=== PATIENT | female | born 1975 | race Caucasian/White ===

== ENCOUNTER 2021-01-22 08:38 | Inpatient (IN) | payer OTHER, SELFPAY ==
[~2021-01-22] VITALS: Ht 170.2 cm; Wt 104.3 kg
[2021-01-22 08:38] VITALS: BP_SYST 165
[2021-01-22] MEDS ORDERED: MORPHINE 4 MG INJ. 4 MG/ML VIAL IVP ONE ×2 (09:00→13:00)
[2021-01-22] MEDS ORDERED: ONDANSETRON HCL 4 MG/2 ML VIAL IVP ONE ×2 (09:00→20:15)
[2021-01-22] MEDS ORDERED: KETOROLAC TROMETHAMINE 30 MG VIAL IVP ONE (09:00)
[2021-01-22] MEDS ORDERED: MAG HYDROX/AL HYDROX/SIMETH 30 ML, DICYCLOMINE HCL 20 MG, LIDOCAINE VISCOUS 2% 15ML (PO... PO ONE ×3 (09:00)
[2021-01-22] MEDS ORDERED: NACL 0.9% 1,000 ML IV ONE (09:00)
[2021-01-22 09:52] LABS: MEAN CORPUSCULAR HEMOGLOBIN 32 pg (27-31)
[2021-01-22 09:54] LABS: CALCIUM 8.6 mg/dL (8.4-11.0); CREATININE 1.17 mg/dL (0.55-1.30); POTASSIUM 4.4 mmol/L (3.5-5.1)
[2021-01-22 09:56] LABS: BASOPHILS % (AUTO) 0.3 % (0.0-2.0); EOSINOPHILS # (AUTO) 0.1 K/uL (0.0-0.4); EOSINOPHILS % (AUTO) 1.1 % (0.0-4.0); HEMATOCRIT 40.8 % (36-48); HEMOGLOBIN 13.6 g/dL (12.0-16.0); LYMPHOCYTES # (AUTO) 0.7 K/uL (1.0-5.5); LYMPHOCYTES % (AUTO) 13.9 % (20.5-51.5); MEAN CORPUSCULAR HGB CONC 33 % (32-36); MEAN CORPUSCULAR VOLUME 95 fL (79.0-98.0); MONOCYTES # (AUTO) 0.2 K/uL (0.0-1.0); MONOCYTES % (AUTO) 3.3 % (1.7-9.3); NEUTROPHILS # (AUTO) 4.4 K/uL (1.8-7.7); NEUTROPHILS % (AUTO) 81.4 % (40.0-70.0); PLATELET COUNT (AUTO) 181 K/uL (130-430); RED CELL DISTRIBUTION WIDTH 13.5 % (9.0-15.0); WHITE BLOOD COUNT (AUTO) 5.4 K/uL (4.8-10.8)
[2021-01-22 10:00] LABS: ALBUMIN 3.4 g/dL (3.4-4.8); TOTAL BILIRUBIN 0.3 mg/dL (0.0-1.0)
[2021-01-22] MEDS ORDERED: METOCLOPRAMIDE HCL 10 MG/2 ML VIAL IVP PRN (14:00)
[2021-01-22] MEDS ORDERED: MORPHINE 2 MG/ML INJ. SYRINGE IVP PRN (14:00)
[2021-01-22] MEDS ORDERED: ONDANSETRON HCL 4 MG/2 ML VIAL IVP PRN (14:00)
[2021-01-22] MEDS ORDERED: MORPHINE 4 MG INJ. 4 MG/ML VIAL IVP PRN (14:00)
[2021-01-22] MEDS ORDERED: ACETAMINOPHEN 325 MG TABLET PO PRN (14:00)
[2021-01-22] MEDS ORDERED: LEVO125T8 PO (14:46)
[2021-01-22] MEDS ORDERED: [UNRECOGNIZED DRUG - CODE] PO (14:46)
[2021-01-22] MEDS ORDERED: LOSA1TAB37 PO (14:46)
[2021-01-22 15:21] VITALS: BP_SYST 142
[2021-01-22] MEDS: D5NS 1,000 ML IV SCH ×2 (15:49→23:54)
[2021-01-22 16:05] VITALS: BP_SYST 147
[2021-01-22 20:00] VITALS: BP_SYST 144
[2021-01-22] MEDS ORDERED: fentaNYL CITRATE/PF 100 MCG/2 ML AMP IVP ONE (20:15)
[2021-01-22] MEDS ORDERED: D5NS 1,000 ML IV.SOLN IV ONE (20:15)
[2021-01-22] MEDS ORDERED: CLINDAMYCIN PHOSPHATE 600 mg/50mL D5W IV ONE (20:15)
[2021-01-22] MEDS ORDERED: LR 500 ML IV.SOLN IV ONE (20:15)
[2021-01-22] MEDS ORDERED: PROPOFOL 200MG/ 20ML VIAL (DIPRIVAN) IV ONE (20:15)
[2021-01-22] MEDS ORDERED: ROCURONIUM BROMIDE 10 MG/ML (ZEMURON) IV ONE (20:15)
[2021-01-22] MEDS ORDERED: SUCCINYLCHOLINE CHLORIDE 20 MG/ML(QUELICIN) IVP ONE (20:15)
[2021-01-22] MEDS ORDERED: BUPIVACAINE /EPINEPHRINE/PF 0.25% 30 ML VIAL INJ ONE (20:15)
[2021-01-22] MEDS ORDERED: SEVOFLURANE 15 MIN GAS INH ONE (20:15)
[2021-01-22] MEDS ORDERED: NS 1000 ML IV.SOLN IV ONE (20:15)
[2021-01-22] MEDS ORDERED: MIDAZOLAM HCL 5 MG/5 ML VIAL IVP ONE (20:15)
[2021-01-22 20:59] LABS: BILIRUBIN,URINE NEGATIVE (NEGATIVE); BLOOD, URINE NEGATIVE (NEGATIVE); CLARITY/URINE CLEAR (CLEAR); COLOR,URINE YELLOW (YELLOW); GLUCOSE,URINE NEGATIVE (NEGATIVE); KETONES,URINE NEGATIVE (NEGATIVE); LEUKOCYTE ESTERASE ,URINE NEGATIVE (NEGATIVE); NITRITE, URINE NEGATIVE (NEGATIVE); PROTEIN URINE NEGATIVE (NEGATIVE); UROBILINOGEN,URINE 0.2 (0.2-1.0)
[2021-01-23 00:14] VITALS: BP_SYST 119
[2021-01-23 01:14] LABS: HCG,QUAL RESULT NEGATIVE (NEGATIVE)
[2021-01-23] MEDS: D5NS 1,000 ML IV SCH ×3 (06:00→23:37)
[2021-01-23 07:00] LABS: PROTHROMBIN TIME 10.2 SECS (9.5-12.5)
[2021-01-23 08:14] VITALS: BP_SYST 140
[2021-01-23 12:14] VITALS: BP_SYST 146
[2021-01-23 16:13] VITALS: BP_SYST 154
[2021-01-23 20:00] VITALS: BP_SYST 156
[2021-01-23] MEDS ORDERED: HYDROmorphone 1 INJ. 1 MG/ML CARTRIDGE IVP PRN (21:45)
[2021-01-23] MEDS ORDERED: NALOXONE HCL 0.4 MG/ML AMP (NARCAN) IVP PRN (21:45)
[2021-01-23] MEDS ORDERED: KETOROLAC TROMETHAMINE 30 MG VIAL IVP PRN (21:45)
[2021-01-23] MEDS ORDERED: ONDANSETRON HCL 4 MG/2 ML VIAL IVP PRN (21:45)
[2021-01-23] MEDS ORDERED: LEVOFLOXACIN 250 MG/D5W 50 ML IV SCH (22:45)
[2021-01-24 00:58] VITALS: BP_SYST 156
[2021-01-24] MEDS ORDERED: LEVOFLOXACIN 250 MG/D5W 50 ML IV ONE (01:00)
[2021-01-24 03:41] VITALS: BP_SYST 133
[2021-01-24] MEDS: D5NS 1,000 ML IV SCH ×2 (06:38→15:17)
[2021-01-24 06:42] LABS: BASOPHILS % (AUTO) 0.3 % (0.0-2.0); EOSINOPHILS # (AUTO) 0.2 K/uL (0.0-0.4); EOSINOPHILS % (AUTO) 4.2 % (0.0-4.0); HEMATOCRIT 35.4 % (36-48); LYMPHOCYTES # (AUTO) 1.2 K/uL (1.0-5.5); MEAN CORPUSCULAR HEMOGLOBIN 32 pg (27-31); MEAN CORPUSCULAR HGB CONC 34 % (32-36); MEAN CORPUSCULAR VOLUME 95 fL (79.0-98.0); MONOCYTES # (AUTO) 0.3 K/uL (0.0-1.0); MONOCYTES % (AUTO) 6.4 % (1.7-9.3); NEUTROPHILS # (AUTO) 3.4 K/uL (1.8-7.7); NEUTROPHILS % (AUTO) 66.1 % (40.0-70.0); PLATELET COUNT (AUTO) 162 K/uL (130-430); RED BLOOD CELL COUNT(AUTO) 3.74 MIL/uL (4.2-6.2); RED CELL DISTRIBUTION WIDTH 13.5 % (9.0-15.0); WHITE BLOOD COUNT (AUTO) 5.2 K/uL (4.8-10.8)
[2021-01-24 08:23] LABS: ALBUMIN 2.4 g/dL (3.4-4.8); CALCIUM 7.5 mg/dL (8.4-11.0); CREATININE 0.88 mg/dL (0.55-1.30); POTASSIUM 3.9 mmol/L (3.5-5.1); TOTAL BILIRUBIN 0.2 mg/dL (0.0-1.0)
[2021-01-24 12:08] VITALS: BP_SYST 128
[2021-01-24 16:18] VITALS: BP_SYST 149
[2021-01-24 16:34] VITALS: BP_SYST 149
== END 2021-01-24 17:57 | disposition home or self-care (01) | DRG 419 ==
LOC: SED 08:38 → SMU 14:01
PROVIDERS: ADMIT Internal Medicine Hospice and Palliative Medicine; ATTEND Internal Medicine Hospice and Palliative Medicine
PROC: 0FT44ZZ Resection of Gallbladder, Percutaneous Endoscopic Approach (ICD-10-PCS; principal; 2021-01-23 16:00)
DX: K80.00 Calculus of gallbladder with acute cholecystitis without obstruction (principal); E03.9 Hypothyroidism, unspecified; K42.9 Umbilical hernia without obstruction or gangrene; Z20.822 Contact with and (suspected) exposure to COVID-19; K66.0 Peritoneal adhesions (postprocedural) (postinfection); Z88.0 Allergy status to penicillin; Z79.890 Hormone replacement therapy; Z79.899 Other long term (current) drug therapy
CPT/HCPCS: 36415; 74021; 76700-TC; 80053; 81003; 83690; 84702; 84703; 85025; 85610-TC; 85730-TC; 86886; 86900; 86901; 87081; 88302; 88304; 94010; 96361; 96374; 96375; 99285; J0330; J1885; J1956; J2001; J2250; J2270; J2405; J2704; J3010; J3490; J7030; J7042; J7120